=== PATIENT | male | born 2000 | race African-American/Black ===

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

== ENCOUNTER 2022-12-16 22:19 | Emergency (ER) | payer MEDICAID, SELFPAY | END 2022-12-16 23:38 | disposition home or self-care (01) | LOC: ERS 22:19 | DX: H60.91 Unspecified otitis externa, right ear (principal); I10 Essential (primary) hypertension | CPT/HCPCS: 99282 ==

== ENCOUNTER 2022-12-22 22:49 | Emergency (ER) | payer MEDICAID, OTHER ==
[2022-12-22] MEDS ORDERED: Metoclopramide HCl 10 MG TAB ONE (23:43)
[2022-12-22] MEDS ORDERED: Ibuprofen 200 MG TAB ONE (23:43)
[2022-12-22] MEDS ORDERED: diphenhydrAMINE 25 MG CAP ONE (23:43)
== END 2022-12-23 00:01 | disposition home or self-care (01) ==
LOC: ERS 22:49
DX: R51.9 Headache, unspecified (principal); I10 Essential (primary) hypertension
CPT/HCPCS: 99283

== ENCOUNTER 2023-01-15 20:23 | Emergency (ER) | payer MEDICAID, OTHER, SELFPAY ==
[2023-01-15] MEDS ORDERED: Ibuprofen 800 MG TAB ONE (21:08)
== END 2023-01-15 21:15 | disposition home or self-care (01) ==
LOC: ERS 20:23
DX: R42 Dizziness and giddiness (principal); R51.9 Headache, unspecified
CPT/HCPCS: 99283

== ENCOUNTER 2025-06-23 18:30 | Emergency (ER) | payer OTHER, SELFPAY ==
[2025-06-23] MEDS ORDERED: Acetaminophen 500 MG TAB ONE (22:16)
[2025-06-23] MEDS ORDERED: Ibuprofen 800 MG TAB ONE (22:16)
== END 2025-06-23 22:48 | disposition home or self-care (01) ==
LOC: ERS 18:30
DX: B34.9 Viral infection, unspecified (principal); I10 Essential (primary) hypertension
CPT/HCPCS: 87428; 93005; 99283